=== PATIENT | female | born 1980 | race Caucasian/White ===

== ENCOUNTER 2017-01-22 08:50 | Observation (INO) | payer BC | END 2017-01-22 09:35 | disposition home or self-care (01) | LOC: FLD 08:50 | PROVIDERS: ADMIT Obstetrics & Gynecology; ATTEND Obstetrics & Gynecology | DX: O36.8130 Decreased fetal movements, third trimester, not applicable or unspecified (principal); Z3A.37 37 weeks gestation of pregnancy ==

== ENCOUNTER 2017-01-28 21:35 | Inpatient (IN) | payer BC ==
[2017-01-28] MEDS ORDERED: CITRIC ACID/SODIUM CITRATE 30 ML UDCUP PO ONE (21:55)
[2017-01-28] MEDS ORDERED: LR 500 ML IV ONE (21:55)
[2017-01-28] MEDS ORDERED: ceFAZolin 2 GM/DEXTROSE 100 ML IV ONE (21:55)
[2017-01-28] MEDS ORDERED: LR 1,000 ML IV SCH (22:00)
[2017-01-28] MEDS ORDERED: AMMONIA AROMATIC 1 EACH AMP IH ONE (22:11)
[2017-01-28] MEDS ORDERED: MISOPROSTOL 200 MCG TAB ONE (22:12)
[2017-01-28] MEDS ORDERED: OXYTOCIN 10 UNIT/ML VIAL ONE (22:12)
[2017-01-28 22:20] LABS: % IMMATURE GRANULYOCYTES 0.6 % (0.0-1.1); ABSOLUTE IMMATURE GRANULOCYTES 0.09 10^3/uL (0.00-0.10); ADD DIFF? NO; ADD MORPH? NO; ADD SCAN? NO; ATYPICAL LYMPHOCYTE FLAG 0 (0-99); FRAGMENT RBC FLAG 0 (0-99); HEMATOCRIT 41.1 % (38.0-47.0); HEMOGLOBIN 14.9 g/dL (12.6-16.3); LEFT SHIFT FLG 0 (0-99); LIPEMIA HEMOLYSIS FLAG 90 (0-99); MEAN CELL HEMOGLOBIN CONCENTR. 36.3 g/dL (32.4-36.7); MEAN CELL VOLUME 90.9 fL (81.5-99.8); MEAN PLATELET VOLUME 10.3 fL (8.7-11.7); PLATELET CLUMPS FLAG 10 (0-99); PLATELET COUNT 180 10^3/uL (150-400); RED BLOOD CELL COUNT 4.52 10^6/uL (4.18-5.33); RED CELL DISTRIBUTION WIDTH 13.1 % (11.5-15.2)
[2017-01-28] MEDS ORDERED: fentaNYL 100 MCG/2 ML INJ ONE (22:28)
[2017-01-28] MEDS ORDERED: morphINE PF 5 MG/10 ML INJ ONE (22:29)
[2017-01-28] MEDS ORDERED: OXYTOCIN 100 UNITS/10 ML VIAL ONE (22:52)
[2017-01-28 23:24] LABS: BASE EXCESS CORD -2.2 mEq/L (-13.6--3.2); CORD BLOOD PCO2 51.4 mmHg (37-60); PH ARTERIAL CORD BLOOD 7.3 (7.10-7.37)
[2017-01-28 23:27] LABS: PH VENOUS CORD BLOOD 7.34 (7.20-7.42)
--- NOTE | 2017-01-28 23:34 | PDANEPAE ---
ANE Past Medical History Past Medical History: Heterozygous for Factor V Leiden deficiency. Never has had symptoms. - Pulmonary History Hx Sleep Apnea: No ANE Review of Systems Review of Systems: ANE Patient History - Allergies Allergies/Adverse Reactions: No Known Allergies Allergy (Unverified 01/22/17 09:08) - Home Medications Home Medications: Aspirin 81mg (*) 1 tab PO DAILY 01/22/17 [Last Taken Unknown] IRON 1 tab PO DAILY 01/22/17 [Last Taken Unknown] 1 tab PO DAILY 01/22/17 [Last Taken Unknown] - Anes Hx Anes Hx: no prior problems - Smoking Hx Smoking Status: Never smoked ANE Labs/Vital Signs - Labs Result Diagrams: 01/28/17 22:05 ANE Physical Exam - Airway Neck exam: FROM Mallampati Score: Class 2 Mouth exam: normal dental/mouth exam - Pulmonary Pulmonary: no respiratory distress, no rales or rhonchi, clear to auscultation - Cardiovascular Cardiovascular: regular rate and rhythym, no murmur, rub, or gallop ANE Anesthesia Plan Anesthesia Plan: spinal
[2017-01-28] MEDS ORDERED: MEPERIDINE 25 MG/ML SYR IVP PRN (23:35)
[2017-01-28] MEDS ORDERED: NALOXONE HCL 0.4 MG/ML INJ IVP PRN ×2 (23:35)
[2017-01-28] MEDS ORDERED: fentaNYL 100 MCG/2 ML INJ IVP PRN (23:35)
[2017-01-28] MEDS ORDERED: METOCLOPRAMIDE 10 MG/2 ML VIAL IVP PRN (23:35)
[2017-01-28] MEDS ORDERED: ONDANSETRON 4 MG/2 ML VIAL IVP PRN (23:35)
--- NOTE | 2017-01-29 00:30 | PREANESOB ---
Obstetric Pre-Anesthesia Info - General Info Proposed Procedure: Repeat C/S NPO Start Time: 18:00 - Info Status: Full Term, [facility] Monitors: External FHR Pattern: Reassuring - Labor Status Amniotic Fluid Color: Meconium Stained PIH: No Magnesium Sulfate in Use: No Section History: Repeat Indications for Current Section: Other (Specify) (Labor, prior C/S) Anesthesia Allergies/Adverse Reactions: Allergy/AdvReac Type Severity Reaction Status Date / Time No Known Allergies Allergy Unverified 01/22/17 09:08 Home Medications: Medication Instructions Recorded Aspirin 81mg (*) 1 tab PO DAILY 01/22/17 IRON 1 tab PO DAILY 01/22/17 1 tab PO DAILY 01/22/17 Visit Medications: Generic Name Dose Route Start Last Admin Trade Name Freq PRN Reason Stop Dose Admin Diphenhydramine HCl 25 - 50 mg 01/28/17 23:35 Benadryl Injection IVP 01/29/17 23:34 Q6HRS PRN Itching Fentanyl 25 - 50 mcg 01/28/17 23:35 Sublimaze IVP 01/29/17 00:39 Q5M PRN Short acting pain control Lactated Ringer's 1,000 mls @ 125 mls/hr 01/28/17 22:00 Lr IV 07/27/17 21:59 CONT MARK Meperidine HCl 12.5 - 25 mg 01/28/17 23:35 Demerol 25 Mg/Ml Syringe IVP 01/29/17 00:40 Q10M PRN shivering/rigors Metoclopramide HCl 10 mg 01/28/17 23:35 Reglan Injection IVP 01/29/17 00:40 ONCE PRN GI motility Naloxone HCl 0.4 mg 01/28/17 23:35 Narcan IVP 01/29/17 23:36 PRN PRN respiratory depression Naloxone HCl 0.1 mg 01/28/17 23:35 Narcan IVP 01/29/17 00:40 Q2M PRN Respiratory Depression Ondansetron HCl 4 mg 01/28/17 23:35 Zofran IVP 01/29/17 00:39 ONCE PRN Nausea/Vomiting, Can't Take PO Discontinued Medications Generic Name Dose Route Start Last Admin Trade Name Freq PRN Reason Stop Dose Admin Ammonia (Aromatic Spirit) Confirm 01/28/17 22:11 Ammonia Aromatic Administered 01/28/17 22:12 Dose 1 each IH .STK-MED ONE Citric Acid/Sodium Citrate 30 ml 01/28/17 21:55 Bicitra PO 01/28/17 21:56 ONCALL ONE Fentanyl Confirm 01/28/17 22:28 Sublimaze Administered 01/28/17 22:29 Dose 100 mcg .ROUTE .STK-MED ONE Cefazolin Sodium/Dextrose 100 mls @ 200 mls/hr 01/28/17 21:55 Ancef 2 Gm (Premix) IV 01/28/17 22:24 ONCALL ONE Protocol Lactated Ringer's 500 mls @ 0 mls/hr 01/28/17 21:55 Lr IV 01/28/17 21:56 ONCE ONE As Directed Misoprostol Confirm 01/28/17 22:12 Cytotec Administered 01/28/17 22:13 Dose 800 mcg .ROUTE .STK-MED ONE Morphine Sulfate Confirm 01/28/17 22:29 Morphine Pf 5 Mg/10 Ml Administered 01/28/17 22:30 Dose 5 mg .ROUTE .STK-MED ONE Oxytocin Confirm 01/28/17 22:12 Pitocin Administered 01/28/17 22:13 Dose 40 unit .ROUTE .STK-MED ONE Oxytocin Confirm 01/28/17 22:52 Pitocin Administered 01/28/17 22:53 Dose 100 units .ROUTE .STK-MED ONE Labs: 01/28/17 22:05 Patient ABO/Rh A POSITIVE 01/28/17 22:05
--- NOTE | 2017-01-29 00:33 | POSTANESTH ---
Post Anesthetic Evaluation Cardiovascular Status: Normal, Stable, Similar to Pre-Op Cond Respiratory Status: Normal, Stable, Similar to Pre-op Cond. Level of Consciousness/Mental Status: Can Participate in Eval, Alert and Oriented Pain Control: Adequate, Prn Tx Ordered Nausea/Vomiting Control: Adequate, Prn Tx Ordered Complications Possibly Related to Anesthesia: None Noted Notes: SAB worked only partially; analgesia supplemented with nitrous oxide and IV opioids. On arrival in PACU, patient reports no pain.
[2017-01-29] MEDS ORDERED: HYDROCODONE/APAP 5/325 TAB PO PRN (00:43)
[2017-01-29] MEDS ORDERED: BISACODYL 10 MG SUPP PR PRN (00:45)
[2017-01-29] MEDS ORDERED: MAGNESIUM HYDROXIDE 30 ML UDCUP PO PRN (00:45)
[2017-01-29] MEDS ORDERED: POLYETHYLENE GLYCOL 3350 17 GM PKT PO PRN (00:45)
[2017-01-29] MEDS ORDERED: LACTULOSE 20 GM/30 ML UDCUP PO PRN (00:45)
--- NOTE | 2017-01-29 00:49 | OBDEL ---
Info Type: Repeat Presentation at Delivery: Vertex L&D Analgesia/Anesthesia Type: Spinal GBS+: Yes - Infant Care Provider Picker Machine Operator/UNDERWATER WELDER: Palak Moran Indications for Delivery: Spontaneous Labor, Prior Classical Incision ( prior low T-incision) Vaginal Delivery - Labor and Delivery Onset of Contractions Date: 01/28/17 Onset of Contractions Time: 14:00 Amniotic Fluid Color: Meconium Stained Cord Gases: Cord Gases Cord Blood PCO2 51.4 mmHg (37-60) 01/28/17 23:10 Cord Base Excess -2.2 mEq/L (-13.6--3.2) H 01/28/17 23:10 Cord ABG pH 7.30 (7.10-7.37) 01/28/17 23:10 Cord VBG pH 7.34 (7.20-7.42) 01/28/17 23:10 Operative Report - Delivery Pre-op Diagnoses: IUP at 38w5d, PCS x2 with low T incision with first, active labor, SROM Post-op Diagnoses: same, delivered History of Prior Section: Yes Number of Prior Sections: 2 Indications for Prior Section: Arrest of Descent (pushed 3 hrs, OP position) Indications for Current Section: Other (Specify) (Labor, prior C/S) Procedure: Unscheduled, Low Transverse Surgeon: Ursula Ramos Gas Fitter Apprentice: Nehal Gustafson Anesthesiologist: Christopher Gaines Findings: Incomplete SAB with add'n 1% lidocaine, plain, injected into skin and fascia, approx 25 cc. dense scar at lower fascia. entry through into peritoneal cavity up high. visceral peritoneum scarred up onto mid uterus - sharply dissected down. very thin GREGG. Head very low and some manipulation to elevate head. Delivery without problems with fundal pressure. Very light mec. Baby with good tone and vigorous after . Cord segment for gases. Placenta removed from ant surface without probls. uterine tone returned well. tubes and ovaries normal. uterine incision intact, without extension - very thin. as hysterotomy being closed one small area about 1 cm of bladder tented up to scar. this was teased away from suture line carefully. Hysterotomy closed with a single layer of 0-vicryl with reinforcing F-8 stitches at right angle and in midline. Bovie used. thurston tip pulled up to help identify bladder edge and assess for cystotomy. before surgery, thurston placed after SAB and slight bld tinged urine. After delivery, urine was bloody in bag. by end of surgery, urine in tub only pink tinged. IV Fluid (ml): 2,200 EBL: 1000 Cord Gases: Cord Gases Cord Blood PCO2 51.4 mmHg (37-60) 01/28/17 23:10 Cord Base Excess -2.2 mEq/L (-13.6--3.2) H 01/28/17 23:10 Cord ABG pH 7.30 (7.10-7.37) 01/28/17 23:10 Cord VBG pH 7.34 (7.20-7.42) 01/28/17 23:10 Data [facility] Delivery Date: 01/28/17 Delivery Time: 23:08 VANI: 02/06/17 Gestational Age: 38 week(s) and 6 day(s) Sex of Infant: Female Weight (gm): 0 g Score (1 Min): 8 Score (5 Min): 9 ICD10 Worksheet Patient Problems: Problems Problem Status Onset Active labor Acute S/P repeat low transverse Acute
[2017-01-29] MEDS: KETOROLAC 30 MG/1 ML SDV IVP SCH ×4 (03:09→21:13)
[2017-01-29] MEDS: SENNOSIDES/DOCUSATE SODIUM TAB PO SCH ×2 (09:08→21:14)
--- NOTE | 2017-01-29 13:17 | OBPP ---
Progress Note Assessment/Plan: Assessment: post day one Low transverse section slightly elevated pulse Mild anemia Plan: FeSO4 IV bolus Okay for shower after thurston removed Continue routine post Op care 01/29/17 13:19 Subjective/ Course: 01/29/17 13:17 Doing well no flatus. Min pain. Tolerated diet well Objective: 01/29/17 06:20 Patient ABO/Rh A POSITIVE 01/28/17 22:05 Temp Pulse Resp BP Pulse Ox 37.3 C 102 H 20 98/61 L 94 01/29/17 12:00 01/29/17 12:00 01/29/17 12:00 01/29/17 12:00 01/29/17 12:00 Uterine Position/Fundal Height: Umbilicus -2 Uterine Tone: Firm Physical Exam - Physical Exam EENT: PERRL/EOMI Neck: non-tender Respiratory: chest non-tender Abdomen: non-tender, soft Extremities: normal range of motion, non-tender, normal inspection Skin: normal color Neuro/Psych: no motor/sensory deficits
[2017-01-29] MEDS ORDERED: LR 1,000 ML IV ONE (14:00)
[2017-01-29] MEDS: FERROUS SULFATE 325 MG TAB PO SCH (21:15)
[2017-01-30] MEDS: IBUPROFEN 600 MG TAB PO PRN ×2 (02:50→08:48)
--- NOTE | 2017-01-30 07:37 | OBPP ---
Progress Note Assessment/Plan: Assessment: post day two Low transverse section slightly elevated pulse Mild anemia Ambulating tolerating Diet Plan: FeSO4 Pulse resolved with IV fluids Considering discharge home today Continue routine post Op care 01/30/17 07:37 Subjective/ Course: 01/29/17 13:17 Doing well no flatus. Min pain. Tolerated diet well 01/30/17 07:38 Ambulating, tolerating diet, voiding well Normal lochia, +flatus and min lochia Objective: 01/29/17 06:20 Patient ABO/Rh A POSITIVE 01/28/17 22:05 Temp Pulse Resp BP Pulse Ox 36.4 C 98 18 112/75 94 01/29/17 23:37 01/30/17 00:28 01/30/17 00:28 01/30/17 00:28 01/30/17 00:28 Physical Exam - Physical Exam EENT: PERRL/EOMI Abdomen: normal bowel sounds, non-tender, soft, other (Fundus firm Incision clean/dry and intact steri strips in place) Extremities: normal range of motion, non-tender, normal inspection Back: Normal inspection Skin: normal color, warm/dry Neuro/Psych: no motor/sensory deficits, alert, normal mood/affect, oriented x 3
[2017-01-30] MEDS: FERROUS SULFATE 325 MG TAB PO SCH (08:48)
[2017-01-30] MEDS: SENNOSIDES/DOCUSATE SODIUM TAB PO SCH (08:48)
[2017-01-30 09:13] VITALS: BP 111/72; PULSE 119; RESP 16; TEMP 98.3; O2SAT 96
--- NOTE | 2017-01-30 13:53 | OBGCSDC ---
General Delivery Information - General Info : 4 Para: 3 Abortions: 1 Type: Repeat L&D Analgesia/Anesthesia Type: Spinal Admission Date: 01/28/17 Labs: Patient ABO/Rh A POSITIVE 01/28/17 22:05 Hct 31.9 % (38.0-47.0) L 01/29/17 06:20 - Hospital Course : 01/29/17 13:17 Doing well no flatus. Min pain. Tolerated diet well 01/30/17 07:38 Ambulating, tolerating diet, voiding well Normal lochia, +flatus and min lochia 01/30/17 13:53 Patient doing well and ready for discharge today Vaginal - Diagnosis Amniotic Fluid Color: Meconium Stained - Delivery Providers Surgeon: Ursula Ramos Sql Database Developer: Nehal Gustafson Anesthesiologist: Christopher Gaines - Delivery Number of Prior Sections: 2 Indications for Current Section: Other (Specify) (Labor, prior C/S) Surgical Procedures: Unscheduled, Low Transverse EBL: 1000 [place] Data [facility] Delivery Date: 01/28/17 Delivery Time: 23:08 VANI: 02/06/17 Gestational Age: 39 week(s) and 0 day(s) Sex of Infant: Female [place] Weight (gm): 0 g Score (1 Min): 8 Score (5 Min): 9 Discharge Information - Discharge Information Prescriptions: Hydrocodone/APAP 5/325 [[place] 5/325 (*)] 1 - 2 tab PO Q4HRS PRN #30 tab PRN Reason: Pain, Moderate Ibuprofen [Motrin (*)] 600 mg PO Q6HRS PRN #30 tab PRN Reason: Inflammation Ferrous Sulfate [Ferrous Sulf 325 MG (*)] 325 mg PO BID #30 tab Condition: Good Instruction/Follow Up: Two Weeks
== END 2017-01-30 15:06 | disposition home or self-care (01) | DRG 765 ==
LOC: FLD 21:35 → OBSVTOIN 21:35 → FOB 01-29 02:00
PROVIDERS: ADMIT Obstetrics & Gynecology; ATTEND Obstetrics & Gynecology
PROC: 10D00Z1 Extraction of Products of Conception, Low, Open Approach (ICD-10-PCS; principal; 2017-01-28)
DX: O34.211 Maternal care for low transverse scar from previous cesarean delivery (principal); O99.113 Other diseases of the blood and blood-forming organs and certain disorders involving the immune mechanism complicating pregnancy, third trimester; D68.2 Hereditary deficiency of other clotting factors; Z3A.39 39 weeks gestation of pregnancy; Z37.0 Single live birth
CPT/HCPCS: J0690; J1885; J2274; J2590; J3010